=== PATIENT | female | born 1955 | race Hispanic/Latino ===

== ENCOUNTER 2018-06-09 06:31 | Emergency (ER) | payer BC ==
[2018-06-09 06:32] VITALS: BMI 29.2
[2018-06-09 06:46] VITALS: O2SAT 99
[2018-06-09 08:34] LABS: BASO % 0.6 % (0.0-2.0); EOS # 0.2 K/uL (0.0-0.7); EOS % 2.8 % (0.0-4.0); HEMOGLOBIN 9.5 g/dL (12.0-16.0); LYMPH # 1.2 K/uL (1.0-4.3); MEAN CELL VOLUME 93.8 fl (81.0-99.0); MEAN CORPUSCULAR HEMOGLOBIN 30.9 pg (27.0-31.0); MEAN PLATELET VOLUME 8.6 fl (7.2-11.7); MONO # 0.5 K/uL (0.0-0.8); MONO % 6.3 % (0.0-10.0); NEUT # 5.8 K/uL (1.8-7.0); NEUT % 74.3 % (50.0-75.0); NRBC % 0.1 % (0.0-0.0); RBC 3.07 Mil/uL (3.80-5.20); RED CELL DISTRIBUTION WIDTH 14.5 % (11.5-14.5); WHITE BLOOD COUNT 7.8 K/uL (4.8-10.8)
[2018-06-09 08:51] LABS: CALCIUM 9.2 mg/dL (8.4-10.2)
--- NOTE | 2018-06-09 08:52 | ED PDOC ---
HPI: Headache Time Seen by Provider: 06/09/18 07:26 Chief Complaint (Nursing): Headache Chief Complaint (Provider): Headache, Elevated blood pressure History Per: Patient History/Exam Limitations: no limitations Onset/Duration Of Symptoms: Hrs Current Symptoms Are (Timing): Still Present Associated Symptoms: Blurred Vision Additional Complaint(s): 63 year old female with a PMHx of hypertension and diabetes presents to the ED complaining of recurrent headaches and high blood pressure. Patient reports having similar symptoms in the past, but today is worse. States she is taking her meds but that her pressure is difficult to control. Patient follows with cardiology regularly, and admits they have changed her medication regimen multiple times in the past year. Her regimen includes Labetalol, Lisinopril, Amlodipine, Hydralazine and recently she was started on clonidine as well. Patient complains of daily headaches and notes today she developed a pounding diffuse headache and found her pressure to be high. 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 Otherwise she denies any chest pain, SOB, dizziness, focal weakness, or numbness. PMD: None Past Medical History Reviewed: Historical Data, Nursing Documentation, Vital Signs Vital Signs: Last Vital Signs Temp 98 F 06/09/18 06:43 Pulse 77 06/09/18 08:34 Resp 16 06/09/18 06:43 BP 183/79 H 06/09/18 08:34 Pulse Ox 99 06/09/18 06:43 - Medical History PMH: Diabetes, HTN, Hyperlipidemia Denies: Chronic Kidney Disease - Surgical History Surgical History: - Family History Family History: States: Unknown Family Hx - Home Medications Home Medications: Ambulatory Orders Medication Instructions Recorded Insulin Detemir [Levemir] 16 units SUBCUT DAILY 05/10/16 Lisinopril [Zestril] 5 mg PO BID #60 tab 05/10/16 Sitagliptin Phos/Metformin HCl 1 tab PO BID 05/10/16 [Janumet Xr 50-1,000 mg Tablet] - Allergies Allergies/Adverse Reactions: Allergies Allergy/AdvReac Type Severity Reaction Status Date / Time No Known Allergies Allergy Verified 06/09/18 06:42 Review of Systems ROS Statement: Except As Marked, All Systems Reviewed And Found Negative Constitutional: Negative for: Fever, Chills Eyes: Positive for: Vision Change (blurred vision, chronic) Cardiovascular: Negative for: Chest Pain, Palpitations Respiratory: Negative for: Shortness of Breath Gastrointestinal: Negative for: Nausea, Vomiting, Diarrhea Musculoskeletal: Negative for: Back Pain Skin: Negative for: Rash Neurological: Positive for: Headache. Negative for: Weakness, Numbness, Confusion, Dizziness Physical Exam - Reviewed Nursing Documentation Reviewed: Yes Vital Signs Reviewed: Yes - Physical Exam Appears: Positive for: Well, Non-toxic, No Acute Distress Head Exam: Positive for: ATRAUMATIC, NORMOCEPHALIC Skin: Positive for: Normal Color, Warm, DRY Eye Exam: Positive for: EOMI, Normal appearance, PERRL ENT: Positive for: Normal ENT Inspection. Negative for: Sinus Pain/Drainage Neck: Positive for: Normal, Supple Cardiovascular/Chest: Positive for: Regular Rate, Rhythm. Negative for: Murmur Respiratory: Positive for: Normal Breath Sounds. Negative for: Accessory Muscle Use, Respiratory Distress Pulses-Radial (L): 2+ Pulses-Radial (R): 2+ Gastrointestinal/Abdominal: Positive for: Soft. Negative for: Tenderness, Distended Back: Positive for: Normal Inspection. Negative for: L CVA Tenderness, R CVA Tenderness, Vertebral Tenderness Extremity: Positive for: Normal ROM. Negative for: Calf Tenderness, Swelling Neurological/Psych: Positive for: Awake, Alert, Oriented (x 3), Gait (is steady), Cerebellar Tests (negative), loom blower II-XII (intact). Negative for: Motor/Sensory Deficits, Facial Droop - Laboratory Results Result Diagrams: 06/09/18 08:20 06/09/18 08:20 - ECG O2 Sat by Pulse Oximetry: 99 (RA) Pulse Ox Interpretation: Normal Medical Decision Making Medical Decision Making: Initial Impression: Hypertension, Headache Differential diagnosis includes but is not limited to: Uncontrolled hypertension, hypertensive emergency, hypertensive encephalopathy, complication related to hypertension Initial Plan: - EKG - Basic blood work - Troponin I - Head CT - 15 mg IV Toradol - 0.2 mg PO Clonidine - Reassess CT Head results: Accession No. : [id number] Patient Name / ID : BEATRIZ VASQUEZ / [id number] Exam Date : 06/09/2018 07:58:02 ( Approved ) Study Comment : Sex / Age : F / 63Y Creator : Sohail Burleson MD Dictator : Sohail Burleson MD Transportation Security Officer : Car Racer : Sohail Burleson MD Approver2 : Report Date : 06/09/2018 09:02:07 My Comment : Date of service: 06/09/2018 PROCEDURE: CT HEAD WITHOUT CONTRAST. HISTORY: headache COMPARISON: None available. TECHNIQUE: Axial computed tomography images were obtained through the head/brain without intravenous contrast. Radiation dose: Total exam DLP = 816.55 mGy-cm. This CT exam was performed using one or more of the following dose reduction techniques: Automated exposure control, adjustment of the mA and/or kV according to patient size, and/or use of iterative reconstruction technique. FINDINGS: HEMORRHAGE: No intracranial hemorrhage. BRAIN: Interval subacute lacune type infarcts are seen in the anterior left basal ganglia not previously appreciated. These could be chronic nevertheless. Follow-up MRI is advised for added characterization here. Otherwise, limited chronic microangiopathy is reiterated the periventricular and subcortical white matter of the cerebrum. Posterior fossa contents remain unremarkable including the brainstem. There is no mass effect with midline brain anatomy unremarkable. No suspicious extra-axial fluid collection appreciable. VENTRICLES: Unremarkable. No hydrocephalus. CALVARIUM: Unremarkable. PARANASAL SINUSES: Chronic left sphenoid sinus disease noted. MASTOID AIR CELLS: Unremarkable as visualized. No inflammatory changes. OTHER FINDINGS: None. IMPRESSION: Subacute or chronic lacune infarcts anterior left basal ganglia. Follow-up MRI is advised for added characterization. Examination otherwise stable in the interval including limited chronic microangiopathy, age-appropriate. -------- --------- Patient reassessed and remains comfortable in stretcher. Repeat vitals demonstrate slight improvement in blood pressure to 183/79. Labs reviewed. Trop negative. 11:40 On re-evaluation patient is resting comfortably and reports feeling better. States headache has resolved. Discussed imaging results with patient and plan for neurology consult. Patient is understanding of plan and agreeable to stay in the hospital if recommended. [id number] King who recommends outpatient MRI and no indications for inpatient work up. Scribe Attestation: Documented by Jen Hitchcock, acting as a scribe for Valeria Shell MD. Provider Scribe Attestation: All medical record entries made by the Scribe were at my direction and personally dictated by me. I have reviewed the chart and agree that the record accurately reflects my personal performance of the history, physical exam, medical decision making, and the department course for this patient. I have also personally directed, reviewed, and agree with the discharge instructions and disposition. Disposition - Clinical Impression Clinical Impression: Headache, HTN (hypertension), Multiple lacunar infarcts - Patient ED Disposition Is Patient to be Admitted: No Doctor Will See Patient In The: Office Counseled Patient/Family Regarding: Studies Performed, Diagnosis, Need For Followup - Disposition Referrals: Paco King MD [Medical Doctor] - Disposition: Routine/Home Disposition Time: 12:00 Condition: GOOD Additional Instructions: Start taking 81 mg aspirin daily. Follow up with your PCP in 2 days. PEDRO HENDERSON, thank you for letting us take care of you today. Your provider was Valeria Shell MD and you were treated for HEADACHE, ELEVATED BP, BLURRED VISION. The emergency medical care you received today was directed at your acute symptoms. If you were prescribed any medication, please fill it and take as directed. It may take several days for your symptoms to resolve. Return to the Emergency Department if your symptoms worsen, do not improve, or if you have any other problems. Please contact your doctor or call one of the physicians/clinics you have been referred to that are listed on the Patient Visit Information form that is included in your discharge packet. Bring any paperwork you were given at discharge with you along with any medications you are taking to your follow up visit. Our treatment cannot replace ongoing medical care by a primary care provider outside of the emergency department. Thank you for allowing the [facility] team to be part of your care today. If you had an X-Ray or CT scan: A Radiologist will review the ED reading if any change in treatment is needed we will contact you. If you had a blood, urine, or wound culture: It will take several days for the results, if any change in treatment is needed we will contact you. If you had an STI test: It will take 48 hours for the results. Please call after 1 week if you have not heard back. Instructions: High Blood Pressure in Adults, Risk Factors for Stroke Forms: [employer] ([place]), [facility] ED School/Work Excuse
[2018-06-09 09:03] LABS: TROPONIN I 0.085 ng/mL (0.00-0.120)
--- NOTE | 2018-06-09 09:06 | CT ---
Date of service: 06/09/2018 PROCEDURE: CT HEAD WITHOUT CONTRAST. HISTORY: headache COMPARISON: None available. TECHNIQUE: Axial computed tomography images were obtained through the head/brain without intravenous contrast. Radiation dose: Total exam DLP = 816.55 mGy-cm. This CT exam was performed using one or more of the following dose reduction techniques: Automated exposure control, adjustment of the mA and/or kV according to patient size, and/or use of iterative reconstruction technique. FINDINGS: HEMORRHAGE: No intracranial hemorrhage. BRAIN: Interval subacute lacune type infarcts are seen in the anterior left basal ganglia not previously appreciated. These could be chronic nevertheless. Follow-up MRI is advised for added characterization here. Otherwise, limited chronic microangiopathy is reiterated the periventricular and subcortical white matter of the cerebrum. Posterior fossa contents remain unremarkable including the brainstem. There is no mass effect with midline brain anatomy unremarkable. No suspicious extra-axial fluid collection appreciable. VENTRICLES: Unremarkable. No hydrocephalus. CALVARIUM: Unremarkable. PARANASAL SINUSES: Chronic left sphenoid sinus disease noted. MASTOID AIR CELLS: Unremarkable as visualized. No inflammatory changes. OTHER FINDINGS: None. IMPRESSION: Subacute or chronic lacune infarcts anterior left basal ganglia. Follow-up MRI is advised for added characterization. Examination otherwise stable in the interval including limited chronic microangiopathy, age-appropriate.
[2018-06-09 12:47] VITALS: BP 166/67; PULSE 76; RESP 18; TEMP 98.2
--- NOTE | 2018-06-09 17:33 | CARD ---
APPROVED REPORT Date of service: 06/09/2018 EKG Measurement Heart [id number] <Conclusion> Normal sinus rhythm Normal ECG
== END 2018-06-09 12:43 | disposition home or self-care (01) ==
LOC: H.ER 06:31
DX: R51 Headache (principal); I10 Essential (primary) hypertension; E11.51 Type 2 diabetes mellitus with diabetic peripheral angiopathy without gangrene; E78.5 Hyperlipidemia, unspecified; Z79.4 Long term (current) use of insulin; G46.7 Other lacunar syndromes
CPT/HCPCS: 70450; 80048; 82948; 84484; 85025; 93005; 96374; 99285; J1885